=== PATIENT | female | born 1955 | race Caucasian/White ===

== ENCOUNTER 2018-08-25 19:45 | Inpatient (IN) | payer MEDICAID ==
--- NOTE | 2018-08-25 20:13 | ED Physician Chart ---
ED Chief Complaint/HPI - Patient Information Date Seen:: 08/25/18 Time Seen:: 20:11 Chief Complaint:: Abdominal pain History of Present Illness:: 63 yo female with history of DM II, hypertension, liver cirrhosis, ascites, GERD , hepatic encephalopathy, was recently admitted for worsening abdominal distention 2 months ago. At that time, ultrasound-guided paracentesis removed 6 L of yellowish ascites from the RLQ. Recently, pt's abdominal pain and distention gradually became worse. Pt was brought from SNF to ER for further evaluation and management. At ER, pt had constant cough and was somewhat tachypnea. Her O2 sat was 97% on room air. Allergies:: Allergies Allergy/AdvReac Type Severity Reaction Status Date / Time No Known Allergies Allergy Verified 08/25/18 19:56 Vitals:: Vital Signs - 8 hr 08/25/18 19:50 Temp 97.9 F HR 93 RR 20 BP 140/84 O2 Sat % 97 ED Review of Systems - Review of Systems General/Constitutional: No fever Skin: No skin lesions Head: No headache Eyes: No pain ENT: No nasal drainage Neck: No neck pain Cardio Vascular: No chest pain Pulmonary: SOB GI: No nausea, No vomiting, Pain, Other (Abdominal distention ) Musculoskeletal: No bone or joint pain Neurological: Weakness, Confusion ED Past Medical History - Past Medical History Past Medical History: HTN, DM, PUD/GERD, Other (Ascites, history of spontaenous bacterial peritonitis, hepatic encephalopathy) Social History: Non Smoker, No Alcohol, No Drug Use Surgical History: None Family Medical History - Family Member Mother History Unknown: Yes ED Physical Exam - Physical Examination General/Constitutional: Awake Head: Atraumatic Eyes: PERRL Other Eyes comments:: amblyopia left eye Other Skin comments:: Sacral decubitus ulcer stage I ENMT: External ears, nose nl Neck: Nontender Other Respiratory comments:: Labored breathing Cardio Vascular: RRR, No murmur, gallop, rubs, NL S1 S2 Other GI comments:: Markedly distended abdomen Other comments:: Wearing diaper Extremities: Full ROM, No edema Neuro/Psych: Alert/oriented (x self and place, follow command) ED Labs/Radiology/EKG Results - Lab Results Results: Laboratory Last Values PT 10.3 SECONDS (9.5-11.5) 08/25/18 20:20 INR 0.99 (0.5-1.4) 08/25/18 20:20 PTT (Actin FS) 22.8 SECONDS (26.0-38.0) L 08/25/18 20:20 Sodium 133 mEq/L (136-145) L 08/25/18 20:20 Potassium 4.7 mEq/L (3.5-5.1) 08/25/18 20:20 Chloride 101 mEq/L (98-107) 08/25/18 20:20 Carbon Dioxide 23.6 mEq/L (21.0-31.0) 08/25/18 20:20 Anion Gap 13.1 (7.0-16.0) 08/25/18 20:20 BUN 21 mg/dL (7-25) 08/25/18 20:20 Creatinine 1.0 mg/dL (0.6-1.2) 08/25/18 20:20 Est GFR ( Amer) > 60.0 ml/min (>90) 08/25/18 20:20 Est GFR (Non-Af Amer) 59.5 ml/min 08/25/18 20:20 BUN/Creatinine Ratio 21.0 08/25/18 20:20 Glucose 191 mg/dL (70-105) H 08/25/18 20:20 Calcium 9.0 mg/dL (8.6-10.3) 08/25/18 20:20 Total Bilirubin 0.5 mg/dL (0.3-1.0) 08/25/18 20:20 AST 24 U/L (13-39) 08/25/18 20:20 ALT 14 U/L (7-52) 08/25/18 20:20 Alkaline Phosphatase 58 U/L (34-104) 08/25/18 20:20 Ammonia 75 umol/L (16-53) H 08/25/18 20:20 Troponin I 0.01 ng/mL (0.01-0.05) 08/25/18 20:20 B-Natriuretic Peptide 95.6 pg/mL (5.0-100.0) 08/25/18 20:20 Total Protein 7.7 gm/dL (6.0-8.3) 08/25/18 20:20 Albumin 2.7 gm/dL (3.7-5.3) L 08/25/18 20:20 Globulin 5.0 gm/dL 08/25/18 20:20 Albumin/Globulin Ratio 0.5 (1.0-1.8) L 08/25/18 20:20 Amylase 64 U/L (29-103) 08/25/18 20:20 Lipase 27 U/L (11-82) 08/25/18 20:20 Urine Source CATH 08/25/18 20:55 Urine Color YELLOW 08/25/18 20:55 Urine Clarity HAZY (CLEAR) 08/25/18 20:55 Urine pH 5.5 (4.6 - 8.0) 08/25/18 20:55 Ur Specific [place] 1.025 (1.005-1.030) 08/25/18 20:55 Urine Protein TRACE mg/dL (NEGATIVE) 08/25/18 20:55 Urine Glucose (UA) NEGATIVE mg/dL (NEGATIVE) 08/25/18 20:55 Urine Ketones TRACE mg/dL (NEGATIVE) 08/25/18 20:55 Urine Blood MODERATE (NEGATIVE) H 08/25/18 20:55 Urine Nitrate NEGATIVE (NEGATIVE) 08/25/18 20:55 Urine Bilirubin NEGATIVE (NEGATIVE) 08/25/18 20:55 Urine Urobilinogen 1.0 E.U./dL (0.2 - 1.0) 08/25/18 20:55 Ur Leukocyte Esterase NEGATIVE (NEGATIVE) 08/25/18 20:55 Urine RBC 5-10 /hpf (0-5) H 08/25/18 20:55 Urine WBC 2-5 /hpf (0-5) 08/25/18 20:55 Ur Epithelial Cells MODERATE /lpf (FEW) 08/25/18 20:55 Urine Bacteria MANY /hpf (NONE SEEN) H 08/25/18 20:55 - Radiology Results Results: CXR: RLL infiltrate CT abdomen/pelvis without contrast: RLL infiltrate Massive amount of ascitic fluid Anasarca Fecal impaction in rectum No hydronephrosis - EKG Interpretations EKG Time:: 21:43 Rate & Rhythm: SR, 90 bpm [place]: Borderline left axis deviation Comments:: Nonspecific T wave abnormalities ED Assessment - Assessment General Assessment: Abdominal pain Massive ascites Possible spontaneous bacterial peritonitis Liver cirrhosis Hyperammonemia Hepatic encephalopathy Right lower lobe pneumonia Hematuria Hypertension DM II GERD Assessment/Comments:: CBC, CMP, PT/PTT, ammonia, amylase, lipase CXR, EKG CT abdomen/pelvis wo contrast lactulose 30 g po Ceftriaxone IV Azithromycin IV DuoNeb Admit for further management of ascites and to rule out SBP ED Septic Shock - . Is Septic Shock (SBP<90, OR Lactate>4 mmol\L) present?: No - <6hrs of presentation: Vital Signs: Vital Signs - 8 hr 08/25/18 19:50 Temp 97.9 F HR 93 RR 20 BP 140/84 O2 Sat % 97 ED Reassessment (Disposition) - Reassessment Reassessment Condition:: Improved - Patient Disposition Discharge/Transfer:: Acute Care w/in this hosp Admitting Medical Physician:: Jacob Pappas
[2018-08-25 20:40] LABS: INR 0.99 (0.5-1.4); PROTHROMBIN TIME (TEST) 10.3 SECONDS (9.5-11.5)
[2018-08-25 20:43] LABS: ALB/GLOB RATIO 0.5 (1.0-1.8); ALBUMIN 2.7 gm/dL (3.7-5.3); ALKALINE PHOSPHATASE 58 U/L (34-104); AMYLASE SERUM 64 U/L (29-103); ANION GAP 13.1 (7.0-16.0); BILIRUBIN,TOTAL 0.5 mg/dL (0.3-1.0); BUN - UREA NITROGEN 21 mg/dL (7-25); CARBON DIOXIDE 23.6 mEq/L (21.0-31.0); CHLORIDE 101 mEq/L (98-107); GFR AFRICAN-AMERICAN > 60.0 ml/min (>90); GFR NON AFRICAN-AMERICAN 59.5 ml/min; GLUCOSE 191 mg/dL (70-105); LIPASE 27 U/L (11-82); POTASSIUM SERUM 4.7 mEq/L (3.5-5.1); SGOT 24 U/L (13-39); SGPT/ALT 14 U/L (7-52); SODIUM SERUM 133 mEq/L (136-145); TOTAL PROTEIN,SERUM 7.7 gm/dL (6.0-8.3)
[2018-08-25 20:57] LABS: URINE SOURCE CATH
[2018-08-25 21:08] LABS: URINE BILIRUBIN NEGATIVE (NEGATIVE); URINE BLOOD MODERATE (NEGATIVE); URINE GLUCOSE (UA) NEGATIVE (NEGATIVE); URINE KETONE TRACE mg/dL (NEGATIVE); URINE LEUKOCYTE ESTERASE NEGATIVE (NEGATIVE); URINE MICROSCOPIC INDICATED? YES; URINE NITRATE NEGATIVE (NEGATIVE); URINE PH 5.5 (4.6 - 8.0); URINE PROTEIN TRACE mg/dL (NEGATIVE)
[2018-08-25 21:17] LABS: URINE CLARITY HAZY (CLEAR); URINE COLOR YELLOW
[2018-08-25 21:18] LABS: URINE BACTERIA MANY /hpf (NONE SEEN); URINE EPITHELIAL CELLS MODERATE /lpf (FEW)
[2018-08-25] MEDS ORDERED: Lactulose 10 Gm/15 mL 30mL UDC PO STA (21:24)
[2018-08-25] MEDS ORDERED: Lactulose 10 Gm/15 mL 30mL UDC ONE (21:27)
[2018-08-25] MEDS ORDERED: Azithromycin 500 MG in Sodium Chloride 0.9% 250 ML IV ONE (21:45)
[2018-08-25] MEDS ORDERED: cefTRIAXone 1 GM in Sodium Chloride 0.9% 50 ML IV ONE (21:45)
[2018-08-25] MEDS ORDERED: Albuterol/Ipratropium Neb 3 ML AERS HHN ONE ×2 (21:47→21:53)
[2018-08-25 23:09] VITALS: BP 139/80
[2018-08-25 23:27] LABS: HEMATOCRIT 35.7 % (41.0-60); HEMOGLOBIN 11.9 gm/dL (12-16); MEAN CELL VOLUME 93.1 fl (81-100); MEAN CORPUSCULAR HEMOGLOBIN 31.1 pg (27.0-31.0); MEAN CORPUSCULAR HGB CONC 33.4 pg (28.0-36.0); RED BLOOD COUNT 3.84 Mil/cmm (3.80-5.10)
[2018-08-25 23:28] LABS: % EOSINOPHILS 2.6 % (0.0-5.0); % LYMPHOCYTES 15.3 % (20.0-50.0); % NEUTROPHILS 71.1 % (40.0-80.0); MEAN PLATELET VOLUME 7.5 fl; PLATELET COUNT 174 Th/cmm (150-400); RED CELL DISTRIBUTION WIDTH 15.7 % (11.5-20.0)
[2018-08-26 05:46] LABS: ALB/GLOB RATIO 0.6 (1.0-1.8); ALBUMIN 2.4 gm/dL (3.7-5.3); ALKALINE PHOSPHATASE 51 U/L (34-104); ANION GAP 11.1 (7.0-16.0); BILIRUBIN,TOTAL 0.4 mg/dL (0.3-1.0); BUN - UREA NITROGEN 22 mg/dL (7-25); CALCIUM SERUM 8.7 mg/dL (8.6-10.3); CARBON DIOXIDE 23.3 mEq/L (21.0-31.0); CHLORIDE 102 mEq/L (98-107); GFR AFRICAN-AMERICAN > 60.0 ml/min (>90); GFR NON AFRICAN-AMERICAN 59.5 ml/min; GLUCOSE 162 mg/dL (70-105); POTASSIUM SERUM 4.4 mEq/L (3.5-5.1); SGOT 22 U/L (13-39); SGPT/ALT 12 U/L (7-52); SODIUM SERUM 132 mEq/L (136-145); TOTAL PROTEIN,SERUM 6.8 gm/dL (6.0-8.3)
--- NOTE | 2018-08-26 05:54 | History and Physical ---
History of Present Illness - HPI Chief Complaint: abdominal pain HPI: 63 y/o female who presents to [facility] ER with abdominal pain noted at the SNF. Patient has a previous history of SBP, Ascites, Liver Cirrhosis, diabetes mellitus, HTN, GERD, Hepatic Encephalopathy, Pleural Effusion, Lower abd pain, Leg Edema, Patient had initial labwork done in the ER which revealed the following... WBC 5.0 H/H 11.0/35.7 plat 174K Na 133 K 4.7 Bun/Cr 21/1.0 glu 191 AST 24 Alt 14 Alk 58 amylase [address] abd/pelvis RLL Infiltrate Massive amount of Ascites Anasarca Fecal Impaction Patient was subsequently admitted for further evaluation and treatment. Vital Signs: Last Vital Signs Temp 97 F 08/26/18 04:00 Pulse 86 08/26/18 04:00 Resp 18 08/26/18 04:00 BP 127/74 08/26/18 04:00 Pulse Ox 96 08/26/18 04:00 Past Medical History Cardiovascular: Report: HTN Pulmonary: Report: No Pertinent Hx [employer]: Report: Other (hepatic encephalopathy) GI: Report: GERD, Other (ascites, liver cirrhosis, h/o SBP) Psych: Report: No Pertinent Hx Musculoskeletal: Report: No Pertinent Hx Rheumatologic: Report: No pertinent Hx Infectious Disease: Report: No Pertinent Hx Renal/: Report: No Pertinent Hx Endocrine: Report: Diabetes Dermatology: Report: No Pertinent Hx Family Medical History - Family Member Mother History Unknown: Yes Ethnicity: Unknown Living Status: Unknown Hx Family Cancer: (UNKNOWN) Hx Family Coronary Artery Disease: (UNKNOWN) Hx Family Congestive Heart Failure: (UNKNOWN) Hx Family Hypertension: (UNKNOWN) Hx Family Stroke: (UNKNOWN) Hx Family Diabetes: (UNKNOWN) Hx Family Seizures: (UNKNOWN) Hx Family Dementia: (UNKNOWN) Hx Family AIDS: (UNKNOWN) Hx Family COPD: (UNKNOWN) Hx Family Hepatitis: (UNKNOWN) Hx Family Psychiatric Problems: (UNKNOWN) Hx Family Tuberculosis: (UNKNWON) Social History Smoke: No Alcohol: None Drugs: None Lives: Shelter - Medications Home Medications: Home Medication Medication Instructions Recorded Type Acetaminophen [Tylenol] 650 mg PO Q6HR PRN 06/28/18 History Amino Acids/Protein Hydrolys 30 ml PO BID 06/28/18 History [Pro-Stat Sugar Free Liquid] Bisacodyl [Dulcolax 10 Mg Supp] 10 mg RC DAILY PRN 06/28/18 History Carvedilol [Coreg] 3.125 mg PO BID 06/28/18 History Docusate Sodium [Colace] 100 mg PO DAILY 06/28/18 History Famotidine [Pepcid] 20 mg PO BID 06/28/18 History Fleet Enema 135 ml RC DAILY PRN 06/28/18 History GLUCAGON HCl [Glucagen] 1 mg IJ PRN PRN 06/28/18 History Glipizide [Glucotrol] 2.5 mg PO QDAC 06/28/18 History Lactulose 30 ml PO BID 06/28/18 History Magnesium Hydroxide [Milk of 30 ml PO HS PRN 06/28/18 History Magnesia] Multivitamin [Multivitamins] 1 cap PO DAILY 06/28/18 History Potassium Chloride ER [Klor-Con] 20 meq PO DAILY 06/28/18 History Insulin Lispro Sliding Scale See Protocol SUBQ ACHS unit 07/02/18 Rx [humaLOG INSULIN SLIDING SCALE] Sitagliptin [Januvia] 50 mg PO DAILY 08/25/18 History - Allergies Allergies/Adverse Reactions: Allergies Allergy/AdvReac Type Severity Reaction Status Date / Time No Known Allergies Allergy Verified 08/25/18 19:56 Review of Systems - Review of Systems Constitutional: Report: No Significant Eyes: Report: No Significant ENT: Report: No Significant Respiratory: Report: No Significant Cardiovascular: Report: No Significant Gastrointestinal: Report: Abdominal Pain Genitourinary: Report: No Significant Musculoskeletal: Report: No Significant Skin: Report: No Significant Neurological: Report: No Significant Physical Exam - Physical Exam HEENT: Report: Ears Nose Throat within normal limits, Pharnyx within normal limits Neck: Report: Within normal limits Cardiovascular Systems: Report: +s1/s2 noted, Regular, Rate and Rhythm Respiratory: Report: Breath Sounds are within normal limits Abdomen: Report: Non-tender to palpation Back: Report: Inspection of back is within normal limits. Extremities: Report: Non-tender to palpation. Skin: Report: Color of skin is within normal limits Neuro/Psych: Report: Mood affect is within normal limits - Lab Results All Lab Results last 24 hours: Laboratory Results - last 24 hr 08/25/18 08/25/18 08/25/18 20:20 20:20 20:20 WBC 5.0 RBC 3.84 Hgb 11.9 L Hct 35.7 L MCV 93.1 MCH 31.1 H MCHC Differential 33.4 RDW 15.7 Plt Count 174 MPV 7.5 Neutrophils % 71.1 Lymphocytes % 15.3 L Monocytes % 10.0 Eosinophils % 2.6 Basophils % 1.0 PT 10.3 INR 0.99 PTT (Actin FS) 22.8 L Sodium 133 L Potassium 4.7 Chloride 101 Carbon Dioxide 23.6 Anion Gap 13.1 BUN 21 Creatinine 1.0 Est GFR ( Amer) > 60.0 Est GFR (Non-Af Amer) 59.5 BUN/Creatinine Ratio 21.0 Glucose 191 H POC Glucose Calcium 9.0 Total Bilirubin 0.5 AST 24 ALT 14 Alkaline Phosphatase 58 Ammonia Troponin I B-Natriuretic Peptide Total Protein 7.7 Albumin 2.7 L Globulin 5.0 Albumin/Globulin Ratio 0.5 L Amylase 64 Lipase 27 Urine Source Urine Color Urine Clarity Urine pH Ur Specific [place] Urine Protein Urine Glucose (UA) Urine Ketones Urine Blood Urine Nitrate Urine Bilirubin Urine Urobilinogen Ur Leukocyte Esterase Urine RBC Urine WBC Ur Epithelial Cells Urine Bacteria 08/25/18 08/25/18 08/25/18 20:20 20:20 20:20 WBC RBC Hgb Hct MCV MCH MCHC Differential RDW Plt Count MPV Neutrophils % Lymphocytes % Monocytes % Eosinophils % Basophils % PT INR PTT (Actin FS) Sodium Potassium Chloride Carbon Dioxide Anion Gap BUN Creatinine Est GFR ( Amer) Est GFR (Non-Af Amer) BUN/Creatinine Ratio Glucose POC Glucose Calcium Total Bilirubin AST ALT Alkaline Phosphatase Ammonia 75 H Troponin I 0.01 B-Natriuretic Peptide 95.6 Total Protein Albumin Globulin Albumin/Globulin Ratio Amylase Lipase Urine Source Urine Color Urine Clarity Urine pH Ur Specific [place] Urine Protein Urine Glucose (UA) Urine Ketones Urine Blood Urine Nitrate Urine Bilirubin Urine Urobilinogen Ur Leukocyte Esterase Urine RBC Urine WBC Ur Epithelial Cells Urine Bacteria 08/25/18 08/26/18 20:55 00:01 WBC RBC Hgb Hct MCV MCH MCHC Differential RDW Plt Count MPV Neutrophils % Lymphocytes % Monocytes % Eosinophils % Basophils % PT INR PTT (Actin FS) Sodium Potassium Chloride Carbon Dioxide Anion Gap BUN Creatinine Est GFR ( Amer) Est GFR (Non-Af Amer) BUN/Creatinine Ratio Glucose POC Glucose 166 H Calcium Total Bilirubin AST ALT Alkaline Phosphatase Ammonia Troponin I B-Natriuretic Peptide Total Protein Albumin Globulin Albumin/Globulin Ratio Amylase Lipase Urine Source CATH Urine Color YELLOW Urine Clarity HAZY Urine pH 5.5 Ur Specific [place] 1.025 Urine Protein TRACE Urine Glucose (UA) NEGATIVE Urine Ketones TRACE Urine Blood MODERATE H Urine Nitrate NEGATIVE Urine Bilirubin NEGATIVE Urine Urobilinogen 1.0 Ur Leukocyte Esterase NEGATIVE Urine RBC 5-10 H Urine WBC 2-5 Ur Epithelial Cells MODERATE Urine Bacteria MANY H - Assessment Assessment: Abdominal Pain RLL infiltrate Ascites Fecal Impaction Anasarca h/o SBP Liver Cirrhosis DM HTN GERD Hepatic Encephalopathy Pleural Effusion Lower abd Pain Leg Edema - Plan Plan: GI consult ... repeat CBC, CMP, ammonia level u/s guided paracentesis
[2018-08-26] MEDS ORDERED: GLUCAGON HCl 1 MG KIT IM PRN (06:04)
[2018-08-26] MEDS ORDERED: Magnesium Hydroxide (MOM) 30 mL UDC PO PRN (06:04)
[2018-08-26] MEDS ORDERED: Fleet Enema 135 mL RC PRN (06:04)
[2018-08-26] MEDS ORDERED: D5-0.45NS 1,000 ML IV SCH (08:07)
[2018-08-26] MEDS: Potassium Chloride 20 mEq ER Tab PO SCH (08:48)
[2018-08-26] MEDS: Lactulose 10 Gm/15 mL 30mL UDC PO SCH ×2 (08:49→16:12)
[2018-08-26] MEDS: Multivitamin Tab PO SCH (08:49)
[2018-08-26] MEDS ORDERED: Non-Formulary Item 1 EA (Amino Acids/Protein Hydrolys [Pro-Stat Sugar Free Liquid] 30 ML) PO SCH (09:00)
[2018-08-26] MEDS ORDERED: Non-Formulary Item 1 EA (Multivitamin [Multivitamins] 1 CAP) PO SCH (09:00)
[2018-08-26] MEDS: INSULIN LISPRO SLIDING SCALE 100 UNITS/ML UNIT SUBQ SCH ×4 (09:02→20:25)
--- NOTE | 2018-08-26 09:41 | Diagnostic Imaging Report ---
Exam: Portable summation of chest. HISTORY: Congestion Prior exam: 08/25/2018 Findings: Portable examination of chest at 0849 hours reviewed and compared to the prior study the earlier demonstrates increase in the right lower lobe infiltrate and superimposed effusion. Right hemidiaphragm is elevated. The left lung parenchyma is well aerated. Bony thorax is intact IMPRESSION: Increased right lobe pneumonia and effusion. Elevation right hemidiaphragm. Clinical correlation recommended.
--- NOTE | 2018-08-26 09:41 | Diagnostic Imaging Report ---
Exam: KUB of the abdomen HISTORY: Abdominal pain Findings: Portable supine examination the abdomen reviewed. The study demonstrates evidence of previous cholecystectomy. The bowel gas to be nonspecific. Bony structures are intact. IMPRESSION: Nonspecific bowel gas pattern.
--- NOTE | 2018-08-26 09:43 | Diagnostic Imaging Report ---
Exam: CT examination abdomen pelvis HISTORY: Abdominal pain ascites Total DLP equals 986 CTDI equals 18.5 Findings: Multiple contiguous thin section of the abdomen pelvis obtained from lower thorax to pubic symphysis without the administration of intravenous or oral contrast material, the study correlated with the prior exam of 06/28/2018. Bilateral mild interstitial infiltrates and pleural thickening appreciated left pleural effusion. The study again demonstrates significant degree of ascitic fluid throughout the abdomen. The visualized liver and spleen intact. There is evidence of previous cholecystectomy. Large amount of fecal content is noted. There is no evidence of obstructive uropathy or nephrolithiasis. Atherosclerotic calcification of abdominal aorta. The urinary bladder is contracted. There are evidence for anasarca. IMPRESSION : massive amount of ascitic fluid throughout the abdomen unchanged compared to prior examination of 06/28/2018.
--- NOTE | 2018-08-26 09:45 | Diagnostic Imaging Report ---
Exam: Portable chest x-ray HISTORY: Shortness of breath COMPARISON: 06/28/2018 Findings: Portable summation of chest at 2101 reviewed. The study demonstrates a elevation right hemidiaphragm with a right base infiltrate and effusion. The findings essentially unchanged compared to prior examination of 06/28/2018. The left lung parenchyma is well aerated. Bony thorax intact. IMPRESSION: elevation right hemidiaphragm, right lower lobe infiltrate and effusion. Follow-up exam is recommended.
[2018-08-26 11:13] LABS: HEMATOCRIT 32.5 % (41.0-60); HEMOGLOBIN 10.5 gm/dL (12-16); MEAN CELL VOLUME 96.2 fl (81-100); MEAN CORPUSCULAR HGB CONC 32.2 pg (28.0-36.0); RED BLOOD COUNT 3.38 Mil/cmm (3.80-5.10); WHITE BLOOD COUNT 4.9 Th/cmm (4.8-10.8)
[2018-08-26 11:14] LABS: % EOSINOPHILS 1.6 % (0.0-5.0); % LYMPHOCYTES 16.9 % (20.0-50.0); % MONOCYTES 12.5 % (2.0-10.0); EOSINOPHILE ABSOLUTE 0.1 Th/cmm (0.1-0.4); LYMPHOCYTE ABSOLUTE 0.8 Th/cmm (1.5-3.0); MEAN PLATELET VOLUME 7.4 fl; MONOCYTE ABSOLUTE 0.6 Th/cmm (0.3-1.0); NEUTROPHILE ABSOLUTE 3.3 Th/cmm (1.8-8.0); PLATELET COUNT 145 Th/cmm (150-400); RED CELL DISTRIBUTION WIDTH 16.2 % (11.5-20.0)
[2018-08-26] MEDS: cefTRIAXone 1 GM in Sodium Chloride 0.9% 50 ML IV SCH (20:17)
[2018-08-26] MEDS: Azithromycin 500 MG in Sodium Chloride 0.9% 250 ML IV SCH (20:17)
--- NOTE | 2018-08-26 20:58 | Consultation ---
DATE OF CONSULTATION: 08/26/2018 GASTROENTEROLOGY CONSULTATION REQUESTING PHYSICIAN: Jacob Pappas M.D. REASON FOR CONSULTATION: Cirrhosis and distention. HISTORY OF PRESENT ILLNESS: A 63-year-old female with history of known cirrhosis ascites/SBP, hepatic encephalopathy, and peripheral edema. She has underlying diabetes mellitus, hypertension, and GERD. She was admitted from skilled nursing for worsening abdominal distention and pain. She was also diagnosed with possible pneumonia. She on imaging was noted to have large ascites. Ultrasound-guided paracentesis is pending. We were asked to see her for her chronic liver disease. PAST MEDICAL HISTORY: As above. PAST SURGICAL HISTORY: Unknown. MEDICATIONS: Here are azithromycin, Dulcolax suppository p.r.n., carvedilol, Rocephin, IV fluids with D5 half NS, Colace daily, Pepcid, Glucotrol, insulin sliding scale, lactulose 20 grams b.i.d., milk of magnesia p.r.n., multivitamin, Klor-Con, Januvia, and Fleet enema p.r.n. ALLERGIES: No known drug allergies. SOCIAL HISTORY: No recent tobacco, alcohol, or drugs. FAMILY HISTORY: Noncontributory. REVIEW OF SYSTEMS: Negative. PHYSICAL EXAMINATION: VITAL SIGNS: Temperature of 97.0, blood pressure 110/70, pulse of 80, respirations 19, and O2 sats 97% on room air. GENERAL: The patient is well-developed, chronically ill-appearing female in no acute distress, somewhat confused. HEENT: Sclerae nonicteric. Oropharynx is clear. CARDIOVASCULAR: Regular rate and rhythm. LUNGS: Clear to auscultation bilaterally. ABDOMEN: Soft. Moderate to large ascites with positive fluid wave. No tenderness to palpation. EXTREMITIES: No clubbing, cyanosis, or edema. RECTAL: Deferred. LABORATORY DATA AND IMAGING: WBC 4.9, hemoglobin 10.5, and platelet count is 145. INR 0.99. Sodium 132, creatinine 1.0, BUN 22, bilirubin 0.4, AST 22, ALT 12, and alkaline phosphatase 51. Albumin is 2.4, ammonia level mildly elevated at 57 today, yesterday was 75. Amylase and lipase normal. Urinalysis shows moderate blood, 5-10 RBCs, trace protein. CT of the abdomen and pelvis done on admission without contrast showed massive ascites, unchanged from prior examination on 06/28/2018, previous cholecystectomy, large amount of fecal content noted. KUB showed nonspecific bowel gas pattern and chest x-ray showed increased right lower lobe pneumonia and effusion, elevation of right hemidiaphragm. IMPRESSION: 1. Cirrhosis, probable nonalcoholic steatohepatitis, but rule out other causes of chronic liver disease such as hepatitis B or C or alcoholism, etc. 3. Probable hepatic encephalopathy with elevated ammonia level. 4. Ascites, recurrent. 5. Possible right-sided pleural effusion and hydrothorax. RECOMMENDATIONS: 1. Agree with ultrasound-guided paracentesis tomorrow. 2. Diuretics with Lasix and Aldactone in the meantime and watch sodium and creatinine. 3. A 2 g sodium diet. 4. Continue lactulose and add rifaximin. 5. Monitor hemoglobin and consider endoscopic workup with endoscopy and/or colonoscopy if not done previously. Endoscopic workup can also be done as an outpatient once ascites is better controlled. 6. Outpatient hepatology follow up with consideration for liver transplantation evaluation if not done previously. Thank you, Dr. Jacob Pappas for involving us in the care of your patient. If you have any further questions, please call us. JOB# [id number]
[2018-08-27 05:12] LABS: ALB/GLOB RATIO 0.5 (1.0-1.8); ALBUMIN 2.4 gm/dL (3.7-5.3); ALKALINE PHOSPHATASE 49 U/L (34-104); ANION GAP 10.7 (7.0-16.0); BILIRUBIN,TOTAL 0.5 mg/dL (0.3-1.0); BUN - UREA NITROGEN 21 mg/dL (7-25); CALCIUM SERUM 8.7 mg/dL (8.6-10.3); CARBON DIOXIDE 25.4 mEq/L (21.0-31.0); CHLORIDE 105 mEq/L (98-107); CREATININE - SERUM 1.1 mg/dL (0.6-1.2); GFR AFRICAN-AMERICAN > 60.0 ml/min (>90); GFR NON AFRICAN-AMERICAN 53.3 ml/min; GLUCOSE 121 mg/dL (70-105); POTASSIUM SERUM 4.1 mEq/L (3.5-5.1); SGOT 18 U/L (13-39); SGPT/ALT 12 U/L (7-52); SODIUM SERUM 137 mEq/L (136-145); TOTAL PROTEIN,SERUM 6.9 gm/dL (6.0-8.3)
[2018-08-27] MEDS: INSULIN LISPRO SLIDING SCALE 100 UNITS/ML UNIT SUBQ SCH ×4 (06:58→20:21)
--- NOTE | 2018-08-27 08:18 | GI Progress Note ---
Subjective - Review of Systems Service Date: 08/27/18 Subjective: A/Ox2, no overnight events GI OBJECTIVE - Results Result Diagrams: 08/26/18 05:00 08/27/18 04:15 Recent Labs: Laboratory Last Values WBC 4.9 Th/cmm (4.8-10.8) 08/26/18 05:00 RBC 3.38 Mil/cmm (3.80-5.10) L 08/26/18 05:00 Hgb 10.5 gm/dL (12-16) L 08/26/18 05:00 Hct 32.5 % (41.0-60) L 08/26/18 05:00 MCV 96.2 fl (81-100) 08/26/18 05:00 MCH 31.0 pg (27.0-31.0) 08/26/18 05:00 MCHC Differential 32.2 pg (28.0-36.0) 08/26/18 05:00 RDW 16.2 % (11.5-20.0) 08/26/18 05:00 Plt Count 145 Th/cmm (150-400) L 08/26/18 05:00 MPV 7.4 fl 08/26/18 05:00 Neutrophils % 68.0 % (40.0-80.0) 08/26/18 05:00 Lymphocytes % 16.9 % (20.0-50.0) L 08/26/18 05:00 Monocytes % 12.5 % (2.0-10.0) H 08/26/18 05:00 Eosinophils % 1.6 % (0.0-5.0) 08/26/18 05:00 Basophils % 1.0 % (0.0-2.0) 08/26/18 05:00 PT 10.3 SECONDS (9.5-11.5) 08/25/18 20:20 INR 0.99 (0.5-1.4) 08/25/18 20:20 PTT (Actin FS) 22.8 SECONDS (26.0-38.0) L 08/25/18 20:20 Sodium 137 mEq/L (136-145) 08/27/18 04:15 Potassium 4.1 mEq/L (3.5-5.1) 08/27/18 04:15 Chloride 105 mEq/L (98-107) 08/27/18 04:15 Carbon Dioxide 25.4 mEq/L (21.0-31.0) 08/27/18 04:15 Anion Gap 10.7 (7.0-16.0) 08/27/18 04:15 BUN 21 mg/dL (7-25) 08/27/18 04:15 Creatinine 1.1 mg/dL (0.6-1.2) 08/27/18 04:15 Est GFR ( Amer) > 60.0 ml/min (>90) 08/27/18 04:15 Est GFR (Non-Af Amer) 53.3 ml/min 08/27/18 04:15 BUN/Creatinine Ratio 19.1 08/27/18 04:15 Glucose 121 mg/dL (70-105) H 08/27/18 04:15 POC Glucose 120 MG/DL (70 - 105) H 08/27/18 06:21 Calcium 8.7 mg/dL (8.6-10.3) 08/27/18 04:15 Total Bilirubin 0.5 mg/dL (0.3-1.0) 08/27/18 04:15 AST 18 U/L (13-39) 08/27/18 04:15 ALT 12 U/L (7-52) 08/27/18 04:15 Alkaline Phosphatase 49 U/L (34-104) 08/27/18 04:15 Ammonia 53 umol/L (16-53) 08/27/18 04:15 Troponin I 0.01 ng/mL (0.01-0.05) 08/25/18 20:20 B-Natriuretic Peptide 95.6 pg/mL (5.0-100.0) 08/25/18 20:20 Total Protein 6.9 gm/dL (6.0-8.3) 08/27/18 04:15 Albumin 2.4 gm/dL (3.7-5.3) L 08/27/18 04:15 Globulin 4.5 gm/dL 08/27/18 04:15 Albumin/Globulin Ratio 0.5 (1.0-1.8) L 08/27/18 04:15 Amylase 64 U/L (29-103) 08/25/18 20:20 Lipase 27 U/L (11-82) 08/25/18 20:20 Urine Source CATH 08/25/18 20:55 Urine Color YELLOW 08/25/18 20:55 Urine Clarity HAZY (CLEAR) 08/25/18 20:55 Urine pH 5.5 (4.6 - 8.0) 08/25/18 20:55 Ur Specific [place] 1.025 (1.005-1.030) 08/25/18 20:55 Urine Protein TRACE mg/dL (NEGATIVE) 08/25/18 20:55 Urine Glucose (UA) NEGATIVE mg/dL (NEGATIVE) 08/25/18 20:55 Urine Ketones TRACE mg/dL (NEGATIVE) 08/25/18 20:55 Urine Blood MODERATE (NEGATIVE) H 08/25/18 20:55 Urine Nitrate NEGATIVE (NEGATIVE) 08/25/18 20:55 Urine Bilirubin NEGATIVE (NEGATIVE) 08/25/18 20:55 Urine Urobilinogen 1.0 E.U./dL (0.2 - 1.0) 08/25/18 20:55 Ur Leukocyte Esterase NEGATIVE (NEGATIVE) 08/25/18 20:55 Urine RBC 5-10 /hpf (0-5) H 08/25/18 20:55 Urine WBC 2-5 /hpf (0-5) 08/25/18 20:55 Ur Epithelial Cells MODERATE /lpf (FEW) 08/25/18 20:55 Urine Bacteria MANY /hpf (NONE SEEN) H 08/25/18 20:55 - Physical Exam Vitals and I&O: Vital Signs Temp 98.4 F 08/27/18 04:00 Pulse 84 08/27/18 04:00 Resp 18 08/27/18 04:00 BP 116/60 08/27/18 04:00 Pulse Ox 98 08/27/18 04:00 Intake & Output 08/26/18 08/27/18 08/27/18 18:59 06:59 18:59 Weight (lbs) 84.822 kg Other: # Voids 3 Stool Characteristics Formed Liquid Brown Weight Source Bedscale Active Medications: Current Medications Acetaminophen (Tylenol) 650 mg PO Q6HR PRN PRN Reason: Pain or Fever >101 Stop: 10/25/18 06:03 Bisacodyl (Dulcolax 10 Mg Supp) 10 mg RC DAILY PRN PRN Reason: Constipation Stop: 10/25/18 06:03 Last Admin: 08/26/18 08:49 Dose: 10 mg Carvedilol (Coreg) 3.125 mg PO BID [facility] Stop: 10/25/18 08:59 Last Admin: 08/26/18 16:13 Dose: Not Given Docusate Sodium (Colace) 100 mg PO DAILY [facility] Stop: 10/25/18 08:59 Last Admin: 08/26/18 08:49 Dose: 100 mg Famotidine (Pepcid) 20 mg PO BID [facility] Stop: 10/25/18 08:59 Last Admin: 08/26/18 16:13 Dose: 20 mg Furosemide (Lasix) 40 mg PO DAILY [facility] Stop: 10/25/18 12:44 Last Admin: 08/26/18 12:56 Dose: 40 mg Glipizide (Glucotrol) 2.5 mg PO QDAC [facility] Stop: 10/25/18 07:29 Last Admin: 08/26/18 08:38 Dose: Not Given Glucagon (Glucagen) 1 mg IM PRN PRN PRN Reason: BLOOD SUGAR < 70 Stop: 10/25/18 06:03 Ceftriaxone Sodium 1 gm/ (Sodium Chloride) 50 mls @ 100 mls/hr IV DAILY@2100 [facility] Stop: 10/25/18 20:59 Last Admin: 08/26/18 20:17 Dose: 100 mls/hr Azithromycin 500 mg/ Sodium (Chloride) 250 mls @ 250 mls/hr IV DAILY@2100 [facility] Stop: 10/25/18 20:59 Last Admin: 08/26/18 20:17 Dose: 250 mls/hr Insulin Human Lispro (Humalog Insulin Sliding Scale) 0 units SUBQ ACHS [facility]; Protocol Stop: 10/25/18 07:29 Last Admin: 08/27/18 06:58 Dose: Not Given Lactulose (Cephulac) 20 gm PO BID [facility] Stop: 10/25/18 08:59 Last Admin: 08/26/18 16:12 Dose: 20 gm Magnesium Hydroxide (Milk Of Magnesia) 30 ml PO HS PRN PRN Reason: Constipation Stop: 10/25/18 06:03 Multivitamins/Vitamin C (Theragran) 1 tab PO DAILY [facility] Stop: 10/25/18 08:59 Last Admin: 08/26/18 08:49 Dose: 1 tab Potassium Chloride (Klor-Con) 20 meq PO DAILY [facility] Stop: 10/25/18 08:59 Last Admin: 08/26/18 08:48 Dose: 20 meq Rifaximin (Xifaxan) 600 mg PO BID [facility] Stop: 10/25/18 16:59 Last Admin: 08/26/18 16:12 Dose: 600 mg Sitagliptin Phosphate (Januvia) 50 mg PO DAILY [facility] Stop: 10/25/18 08:59 Last Admin: 08/26/18 08:48 Dose: 50 mg Sodium Phosphate (Fleet Enema) 135 ml RC DAILY PRN PRN Reason: Constipation Stop: 10/25/18 06:03 Spironolactone (Aldactone) 100 mg PO DAILY [facility] Stop: 10/25/18 12:44 Last Admin: 08/26/18 12:56 Dose: 100 mg General: Alert HEENT: Atraumatic Neck: Supple Cardiovascular: Regular rate Abdomen: Bowel sounds, Soft, Hepatomegaly, Distended, no Tender, no Splenomegaly , no Rebound, no Mass, no Guarding - Procedures Procedures: Procedures Procedure Code Date DRAINAGE OF PERITONEAL CAVITY, PERCUTANEOUS APPROACH [id number] 06/29/18 Assessment/Plan - Assessment Assessment: # Cirrhosis, 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 Monitor Cr and electrolytes - lactulose and rifaximin for HE, much improved - diet as tolerated, low sodium - hepatology follow up - HCC screening up to date - avoid EtOH
--- NOTE | 2018-08-27 08:25 | General Progress Note ---
Subjective - Review of Systems Service Date: 08/27/18 Subjective: Patient is awake, alert, no acute distress. Patient for therapeutic paracentesis this AM. Objective - Results Result Diagrams: 08/26/18 05:00 08/27/18 04:15 Recent Labs: Laboratory Last Values WBC 4.9 Th/cmm (4.8-10.8) 08/26/18 05:00 RBC 3.38 Mil/cmm (3.80-5.10) L 08/26/18 05:00 Hgb 10.5 gm/dL (12-16) L 08/26/18 05:00 Hct 32.5 % (41.0-60) L 08/26/18 05:00 MCV 96.2 fl (81-100) 08/26/18 05:00 MCH 31.0 pg (27.0-31.0) 08/26/18 05:00 MCHC Differential 32.2 pg (28.0-36.0) 08/26/18 05:00 RDW 16.2 % (11.5-20.0) 08/26/18 05:00 Plt Count 145 Th/cmm (150-400) L 08/26/18 05:00 MPV 7.4 fl 08/26/18 05:00 Neutrophils % 68.0 % (40.0-80.0) 08/26/18 05:00 Lymphocytes % 16.9 % (20.0-50.0) L 08/26/18 05:00 Monocytes % 12.5 % (2.0-10.0) H 08/26/18 05:00 Eosinophils % 1.6 % (0.0-5.0) 08/26/18 05:00 Basophils % 1.0 % (0.0-2.0) 08/26/18 05:00 PT 10.3 SECONDS (9.5-11.5) 08/25/18 20:20 INR 0.99 (0.5-1.4) 08/25/18 20:20 PTT (Actin FS) 22.8 SECONDS (26.0-38.0) L 08/25/18 20:20 Sodium 137 mEq/L (136-145) 08/27/18 04:15 Potassium 4.1 mEq/L (3.5-5.1) 08/27/18 04:15 Chloride 105 mEq/L (98-107) 08/27/18 04:15 Carbon Dioxide 25.4 mEq/L (21.0-31.0) 08/27/18 04:15 Anion Gap 10.7 (7.0-16.0) 08/27/18 04:15 BUN 21 mg/dL (7-25) 08/27/18 04:15 Creatinine 1.1 mg/dL (0.6-1.2) 08/27/18 04:15 Est GFR ( Amer) > 60.0 ml/min (>90) 08/27/18 04:15 Est GFR (Non-Af Amer) 53.3 ml/min 08/27/18 04:15 BUN/Creatinine Ratio 19.1 08/27/18 04:15 Glucose 121 mg/dL (70-105) H 08/27/18 04:15 POC Glucose 120 MG/DL (70 - 105) H 08/27/18 06:21 Calcium 8.7 mg/dL (8.6-10.3) 08/27/18 04:15 Total Bilirubin 0.5 mg/dL (0.3-1.0) 08/27/18 04:15 AST 18 U/L (13-39) 08/27/18 04:15 ALT 12 U/L (7-52) 08/27/18 04:15 Alkaline Phosphatase 49 U/L (34-104) 08/27/18 04:15 Ammonia 53 umol/L (16-53) 08/27/18 04:15 Troponin I 0.01 ng/mL (0.01-0.05) 08/25/18 20:20 B-Natriuretic Peptide 95.6 pg/mL (5.0-100.0) 08/25/18 20:20 Total Protein 6.9 gm/dL (6.0-8.3) 08/27/18 04:15 Albumin 2.4 gm/dL (3.7-5.3) L 08/27/18 04:15 Globulin 4.5 gm/dL 08/27/18 04:15 Albumin/Globulin Ratio 0.5 (1.0-1.8) L 08/27/18 04:15 Amylase 64 U/L (29-103) 08/25/18 20:20 Lipase 27 U/L (11-82) 08/25/18 20:20 Urine Source CATH 08/25/18 20:55 Urine Color YELLOW 08/25/18 20:55 Urine Clarity HAZY (CLEAR) 08/25/18 20:55 Urine pH 5.5 (4.6 - 8.0) 08/25/18 20:55 Ur Specific [place] 1.025 (1.005-1.030) 08/25/18 20:55 Urine Protein TRACE mg/dL (NEGATIVE) 08/25/18 20:55 Urine Glucose (UA) NEGATIVE mg/dL (NEGATIVE) 08/25/18 20:55 Urine Ketones TRACE mg/dL (NEGATIVE) 08/25/18 20:55 Urine Blood MODERATE (NEGATIVE) H 08/25/18 20:55 Urine Nitrate NEGATIVE (NEGATIVE) 08/25/18 20:55 Urine Bilirubin NEGATIVE (NEGATIVE) 08/25/18 20:55 Urine Urobilinogen 1.0 E.U./dL (0.2 - 1.0) 08/25/18 20:55 Ur Leukocyte Esterase NEGATIVE (NEGATIVE) 08/25/18 20:55 Urine RBC 5-10 /hpf (0-5) H 08/25/18 20:55 Urine WBC 2-5 /hpf (0-5) 08/25/18 20:55 Ur Epithelial Cells MODERATE /lpf (FEW) 08/25/18 20:55 Urine Bacteria MANY /hpf (NONE SEEN) H 08/25/18 20:55 - Physical Exam Vitals and I&O: Vital Signs Temp 98.4 F 08/27/18 04:00 Pulse 84 08/27/18 04:00 Resp 18 08/27/18 04:00 BP 116/60 08/27/18 04:00 Pulse Ox 98 08/27/18 04:00 Intake & Output 08/26/18 08/27/18 08/27/18 18:59 06:59 18:59 Weight (lbs) 84.822 kg Other: # Voids 3 Stool Characteristics Formed Liquid Brown Weight Source Bedscale Active Medications: Current Medications Acetaminophen (Tylenol) 650 mg PO Q6HR PRN PRN Reason: Pain or Fever >101 Stop: 10/25/18 06:03 Bisacodyl (Dulcolax 10 Mg Supp) 10 mg RC DAILY PRN PRN Reason: Constipation Stop: 10/25/18 06:03 Last Admin: 08/26/18 08:49 Dose: 10 mg Carvedilol (Coreg) 3.125 mg PO BID [facility] Stop: 10/25/18 08:59 Last Admin: 08/26/18 16:13 Dose: Not Given Docusate Sodium (Colace) 100 mg PO DAILY [facility] Stop: 10/25/18 08:59 Last Admin: 08/26/18 08:49 Dose: 100 mg Famotidine (Pepcid) 20 mg PO BID [facility] Stop: 10/25/18 08:59 Last Admin: 08/26/18 16:13 Dose: 20 mg Furosemide (Lasix) 40 mg PO DAILY [facility] Stop: 10/25/18 12:44 Last Admin: 08/26/18 12:56 Dose: 40 mg Glipizide (Glucotrol) 2.5 mg PO QDAC [facility] Stop: 10/25/18 07:29 Last Admin: 08/26/18 08:38 Dose: Not Given Glucagon (Glucagen) 1 mg IM PRN PRN PRN Reason: BLOOD SUGAR < 70 Stop: 10/25/18 06:03 Ceftriaxone Sodium 1 gm/ (Sodium Chloride) 50 mls @ 100 mls/hr IV DAILY@2100 [facility] Stop: 10/25/18 20:59 Last Admin: 08/26/18 20:17 Dose: 100 mls/hr Azithromycin 500 mg/ Sodium (Chloride) 250 mls @ 250 mls/hr IV DAILY@2100 [facility] Stop: 10/25/18 20:59 Last Admin: 08/26/18 20:17 Dose: 250 mls/hr Insulin Human Lispro (Humalog Insulin Sliding Scale) 0 units SUBQ ACHS [facility]; Protocol Stop: 10/25/18 07:29 Last Admin: 08/27/18 06:58 Dose: Not Given Lactulose (Cephulac) 20 gm PO BID [facility] Stop: 10/25/18 08:59 Last Admin: 08/26/18 16:12 Dose: 20 gm Magnesium Hydroxide (Milk Of Magnesia) 30 ml PO HS PRN PRN Reason: Constipation Stop: 10/25/18 06:03 Multivitamins/Vitamin C (Theragran) 1 tab PO DAILY [facility] Stop: 10/25/18 08:59 Last Admin: 08/26/18 08:49 Dose: 1 tab Potassium Chloride (Klor-Con) 20 meq PO DAILY [facility] Stop: 10/25/18 08:59 Last Admin: 08/26/18 08:48 Dose: 20 meq Rifaximin (Xifaxan) 600 mg PO BID [facility] Stop: 10/25/18 16:59 Last Admin: 08/26/18 16:12 Dose: 600 mg Sitagliptin Phosphate (Januvia) 50 mg PO DAILY [facility] Stop: 10/25/18 08:59 Last Admin: 08/26/18 08:48 Dose: 50 mg Sodium Phosphate (Fleet Enema) 135 ml RC DAILY PRN PRN Reason: Constipation Stop: 10/25/18 06:03 Spironolactone (Aldactone) 100 mg PO DAILY [facility] Stop: 10/25/18 12:44 Last Admin: 08/26/18 12:56 Dose: 100 mg General: Alert HEENT: Atraumatic Neck: Supple Cardiovascular: Regular rate Abdomen: Bowel sounds, Soft, Hepatomegaly, Distended, no Tender, no Splenomegaly , no Rebound, no Mass, no Guarding - Procedures Procedures: Procedures Procedure Code Date DRAINAGE OF PERITONEAL CAVITY, PERCUTANEOUS APPROACH [id number] 06/29/18 Assessment/Plan - Assessment Assessment: Abdominal Pain RLL infiltrate Ascites Fecal Impaction Anasarca h/o SBP Liver Cirrhosis DM HTN GERD Hepatic Encephalopathy Pleural Effusion Lower abd Pain Leg Edema - Plan Plan: GI consult ... repeat CBC, CMP, ammonia level for u/s guided paracentesis today
[2018-08-27] MEDS: Potassium Chloride 20 mEq ER Tab PO SCH (08:30)
[2018-08-27] MEDS: Lactulose 10 Gm/15 mL 30mL UDC PO SCH ×2 (08:31→16:10)
[2018-08-27] MEDS: Multivitamin Tab PO SCH (08:31)
[2018-08-27] MEDS ORDERED: Probiotic Screen MC PRN (09:15)
[2018-08-27 09:16] LABS: WHITE BLOOD COUNT 3.9 Th/cmm (4.8-10.8)
[2018-08-27 09:22] LABS: % NEUTROPHILS 57.2 % (40.0-80.0); HEMATOCRIT 32.4 % (41.0-60); HEMOGLOBIN 10.6 gm/dL (12-16); MEAN CELL VOLUME 95.1 fl (81-100); MEAN CORPUSCULAR HEMOGLOBIN 31.1 pg (27.0-31.0); MEAN CORPUSCULAR HGB CONC 32.7 pg (28.0-36.0); MEAN PLATELET VOLUME 7.1 fl; PLATELET COUNT 148 Th/cmm (150-400); RED BLOOD COUNT 3.41 Mil/cmm (3.80-5.10); RED CELL DISTRIBUTION WIDTH 15.7 % (11.5-20.0)
[2018-08-27 09:23] LABS: % BASOPHILS 1.2 % (0.0-2.0); % EOSINOPHILS 3.3 % (0.0-5.0); % LYMPHOCYTES 26.5 % (20.0-50.0); % MONOCYTES 11.8 % (2.0-10.0)
--- NOTE | 2018-08-27 14:05 | Diagnostic Imaging Report ---
Ultrasound-guided paracentesis HISTORY: Ascites COMPARISON: CT abdomen and pelvis on 08/25/2018 FINDINGS: The procedure was performed by Dr. Sena. Informed consent was obtained and sterile techniques were utilized. Using ultrasound guidance, 5.4 liters of fluid was drained from the right lower quadrant. The patient tolerated the procedure with no immediate complications. IMPRESSION: Successful ultrasound guided paracentesis as above.
[2018-08-27 15:45] LABS: BF APPEARANCE CLEAR; BF COLOR YELLOW; BF RBC 35 /cumm; BF WBC 25 /cumm
[2018-08-27 15:47] LABS: BF MACROPHAGES MODERATE; BF MESOTELIAL CELLS RARE
[2018-08-27 15:56] LABS: BODY FLUID SITE ABDOMEN; BODY FLUID SOURCE PARACENTHESIS
[2018-08-27] MEDS: cefTRIAXone 1 GM in Sodium Chloride 0.9% 50 ML IV SCH (20:04)
[2018-08-27] MEDS: Azithromycin 500 MG in Sodium Chloride 0.9% 250 ML IV SCH (20:53)
[2018-08-28] MEDS: INSULIN LISPRO SLIDING SCALE 100 UNITS/ML UNIT SUBQ SCH ×2 (06:41→13:11)
--- NOTE | 2018-08-28 07:46 | General Progress Note ---
Subjective - Review of Systems Service Date: 08/28/18 Subjective: Patient is awake, alert, no acute distress. s/p paracentesis yesterday. 5L fluid removed. feeling better. less abd pain. Objective - Results Result Diagrams: 08/27/18 04:15 08/27/18 04:15 Recent Labs: Laboratory Last Values WBC 3.9 Th/cmm (4.8-10.8) L 08/27/18 04:15 RBC 3.41 Mil/cmm (3.80-5.10) L 08/27/18 04:15 Hgb 10.6 gm/dL (12-16) L 08/27/18 04:15 Hct 32.4 % (41.0-60) L 08/27/18 04:15 MCV 95.1 fl (81-100) 08/27/18 04:15 MCH 31.1 pg (27.0-31.0) H 08/27/18 04:15 MCHC Differential 32.7 pg (28.0-36.0) 08/27/18 04:15 RDW 15.7 % (11.5-20.0) 08/27/18 04:15 Plt Count 148 Th/cmm (150-400) L 08/27/18 04:15 MPV 7.1 fl 08/27/18 04:15 Neutrophils % 57.2 % (40.0-80.0) 08/27/18 04:15 Lymphocytes % 26.5 % (20.0-50.0) 08/27/18 04:15 Monocytes % 11.8 % (2.0-10.0) H 08/27/18 04:15 Eosinophils % 3.3 % (0.0-5.0) 08/27/18 04:15 Basophils % 1.2 % (0.0-2.0) 08/27/18 04:15 PT 10.3 SECONDS (9.5-11.5) 08/25/18 20:20 INR 0.99 (0.5-1.4) 08/25/18 20:20 PTT (Actin FS) 22.8 SECONDS (26.0-38.0) L 08/25/18 20:20 Sodium 137 mEq/L (136-145) 08/27/18 04:15 Potassium 4.1 mEq/L (3.5-5.1) 08/27/18 04:15 Chloride 105 mEq/L (98-107) 08/27/18 04:15 Carbon Dioxide 25.4 mEq/L (21.0-31.0) 08/27/18 04:15 Anion Gap 10.7 (7.0-16.0) 08/27/18 04:15 BUN 21 mg/dL (7-25) 08/27/18 04:15 Creatinine 1.1 mg/dL (0.6-1.2) 08/27/18 04:15 Est GFR ( Amer) > 60.0 ml/min (>90) 08/27/18 04:15 Est GFR (Non-Af Amer) 53.3 ml/min 08/27/18 04:15 BUN/Creatinine Ratio 19.1 08/27/18 04:15 Glucose 121 mg/dL (70-105) H 08/27/18 04:15 POC Glucose 125 MG/DL (70 - 105) H 08/28/18 06:34 Calcium 8.7 mg/dL (8.6-10.3) 08/27/18 04:15 Total Bilirubin 0.5 mg/dL (0.3-1.0) 08/27/18 04:15 AST 18 U/L (13-39) 08/27/18 04:15 ALT 12 U/L (7-52) 08/27/18 04:15 Alkaline Phosphatase 49 U/L (34-104) 08/27/18 04:15 Ammonia 53 umol/L (16-53) 08/27/18 04:15 Troponin I 0.01 ng/mL (0.01-0.05) 08/25/18 20:20 B-Natriuretic Peptide 95.6 pg/mL (5.0-100.0) 08/25/18 20:20 Total Protein 6.9 gm/dL (6.0-8.3) 08/27/18 04:15 Albumin 2.4 gm/dL (3.7-5.3) L 08/27/18 04:15 Globulin 4.5 gm/dL 08/27/18 04:15 Albumin/Globulin Ratio 0.5 (1.0-1.8) L 08/27/18 04:15 Amylase 64 U/L (29-103) 08/25/18 20:20 Lipase 27 U/L (11-82) 08/25/18 20:20 Urine Source CATH 08/25/18 20:55 Urine Color YELLOW 08/25/18 20:55 Urine Clarity HAZY (CLEAR) 08/25/18 20:55 Urine pH 5.5 (4.6 - 8.0) 08/25/18 20:55 Ur Specific [place] 1.025 (1.005-1.030) 08/25/18 20:55 Urine Protein TRACE mg/dL (NEGATIVE) 08/25/18 20:55 Urine Glucose (UA) NEGATIVE mg/dL (NEGATIVE) 08/25/18 20:55 Urine Ketones TRACE mg/dL (NEGATIVE) 08/25/18 20:55 Urine Blood MODERATE (NEGATIVE) H 08/25/18 20:55 Urine Nitrate NEGATIVE (NEGATIVE) 08/25/18 20:55 Urine Bilirubin NEGATIVE (NEGATIVE) 08/25/18 20:55 Urine Urobilinogen 1.0 E.U./dL (0.2 - 1.0) 08/25/18 20:55 Ur Leukocyte Esterase NEGATIVE (NEGATIVE) 08/25/18 20:55 Urine RBC 5-10 /hpf (0-5) H 08/25/18 20:55 Urine WBC 2-5 /hpf (0-5) 08/25/18 20:55 Ur Epithelial Cells MODERATE /lpf (FEW) 08/25/18 20:55 Urine Bacteria MANY /hpf (NONE SEEN) H 08/25/18 20:55 Body Fluid Site ABDOMEN 08/27/18 11:40 Fluid Source PARACENTHESIS 08/27/18 11:40 Fluid Color YELLOW 08/27/18 11:40 Fluid Appearance CLEAR 08/27/18 11:40 Fluid WBC 25 /cumm 08/27/18 11:40 Fluid RBC 35 /cumm 08/27/18 11:40 Fluid Neutrophils 27 % 08/27/18 11:40 Fluid Lymphocytes 51 % 08/27/18 11:40 Fluid Macrophages MODERATE 08/27/18 11:40 Fld Mesothelial Cells RARE 08/27/18 11:40 Body Fluid Clot NO 08/27/18 11:40 - Physical Exam Vitals and I&O: Vital Signs Temp 97.6 F 08/28/18 04:00 Pulse 75 08/28/18 04:00 Resp 19 08/28/18 04:00 BP 130/70 08/28/18 04:00 Pulse Ox 97 08/28/18 04:00 Intake & Output 08/27/18 08/28/18 08/28/18 18:59 06:59 18:59 Intake Total 375 Output Total 5400 Balance -5025 Weight (lbs) 79.787 kg 79.787 kg Intake: Oral 375 Output: Other 5400 Other: # Voids 3 2 # Bowel Movements 1 1 Stool Characteristics Soft Soft Brown Brown Weight Source Bedscale Bedscale Active Medications: Current Medications Acetaminophen (Tylenol) 650 mg PO Q6HR PRN PRN Reason: Pain or Fever >101 Stop: 10/25/18 06:03 Bisacodyl (Dulcolax 10 Mg Supp) 10 mg RC DAILY PRN PRN Reason: Constipation Stop: 10/25/18 06:03 Last Admin: 08/26/18 08:49 Dose: 10 mg Carvedilol (Coreg) 3.125 mg PO BID [facility] Stop: 10/25/18 08:59 Last Admin: 08/27/18 16:10 Dose: Not Given Docusate Sodium (Colace) 100 mg PO DAILY [facility] Stop: 10/25/18 08:59 Last Admin: 08/27/18 08:31 Dose: 100 mg Famotidine (Pepcid) 20 mg PO BID [facility] Stop: 10/25/18 08:59 Last Admin: 08/27/18 16:10 Dose: 20 mg Furosemide (Lasix) 40 mg PO DAILY [facility] Stop: 10/25/18 12:44 Last Admin: 08/27/18 08:31 Dose: 40 mg Glipizide (Glucotrol) 2.5 mg PO QDAC [facility] Stop: 10/25/18 07:29 Last Admin: 08/28/18 06:34 Dose: 2.5 mg Glucagon (Glucagen) 1 mg IM PRN PRN PRN Reason: BLOOD SUGAR < 70 Stop: 10/25/18 06:03 Ceftriaxone Sodium 1 gm/ (Sodium Chloride) 50 mls @ 100 mls/hr IV DAILY@2100 [facility] Stop: 10/25/18 20:59 Last Admin: 08/27/18 20:04 Dose: 100 mls/hr Azithromycin 500 mg/ Sodium (Chloride) 250 mls @ 250 mls/hr IV DAILY@2100 [facility] Stop: 10/25/18 20:59 Last Admin: 08/27/18 20:53 Dose: 250 mls/hr Insulin Human Lispro (Humalog Insulin Sliding Scale) 0 units SUBQ ACHS [facility]; Protocol Stop: 10/25/18 07:29 Last Admin: 08/28/18 06:41 Dose: Not Given Lactobacillus Rhamnosus (Culturelle 15b) 1 each PO DAILY [facility] Stop: 10/27/18 08:59 Lactulose (Cephulac) 20 gm PO BID [facility] Stop: 10/25/18 08:59 Last Admin: 08/27/18 16:10 Dose: 20 gm Magnesium Hydroxide (Milk Of Magnesia) 30 ml PO HS PRN PRN Reason: Constipation Stop: 10/25/18 06:03 Miscellaneous (Probiotic Screen) 1 ea MC PRN PRN PRN Reason: PROTOCOL Stop: 10/26/18 09:14 Multivitamins/Vitamin C (Theragran) 1 tab PO DAILY [facility] Stop: 10/25/18 08:59 Last Admin: 08/27/18 08:31 Dose: 1 tab Potassium Chloride (Klor-Con) 20 meq PO DAILY [facility] Stop: 10/25/18 08:59 Last Admin: 08/27/18 08:30 Dose: 20 meq Rifaximin (Xifaxan) 600 mg PO BID [facility] Stop: 10/25/18 16:59 Last Admin: 08/27/18 16:10 Dose: 600 mg Sitagliptin Phosphate (Januvia) 50 mg PO DAILY [facility] Stop: 10/25/18 08:59 Last Admin: 08/27/18 08:30 Dose: 50 mg Sodium Phosphate (Fleet Enema) 135 ml RC DAILY PRN PRN Reason: Constipation Stop: 10/25/18 06:03 Spironolactone (Aldactone) 100 mg PO DAILY [facility] Stop: 10/25/18 12:44 Last Admin: 08/27/18 08:29 Dose: 100 mg General: Alert HEENT: Atraumatic Neck: Supple Cardiovascular: Regular rate Abdomen: Bowel sounds, Soft, Hepatomegaly, Distended, no Tender, no Splenomegaly , no Rebound, no Mass, no Guarding - Procedures Procedures: Procedures Procedure Code Date DRAINAGE OF PERITONEAL CAVITY, PERCUTANEOUS APPROACH [id number] 06/29/18 Assessment/Plan - Assessment Assessment: Abdominal Pain RLL infiltrate Ascites Fecal Impaction Anasarca h/o SBP Liver Cirrhosis DM HTN GERD Hepatic Encephalopathy Pleural Effusion Lower abd Pain Leg Edema - Plan Plan: DC today back to SNF continue home meds.
--- NOTE | 2018-08-28 08:01 | GI Progress Note ---
Subjective - Review of Systems Service Date: 08/28/18 Subjective: More alert today, feeling better GI OBJECTIVE - Results Result Diagrams: 08/27/18 04:15 08/27/18 04:15 Recent Labs: Laboratory Last Values WBC 3.9 Th/cmm (4.8-10.8) L 08/27/18 04:15 RBC 3.41 Mil/cmm (3.80-5.10) L 08/27/18 04:15 Hgb 10.6 gm/dL (12-16) L 08/27/18 04:15 Hct 32.4 % (41.0-60) L 08/27/18 04:15 MCV 95.1 fl (81-100) 08/27/18 04:15 MCH 31.1 pg (27.0-31.0) H 08/27/18 04:15 MCHC Differential 32.7 pg (28.0-36.0) 08/27/18 04:15 RDW 15.7 % (11.5-20.0) 08/27/18 04:15 Plt Count 148 Th/cmm (150-400) L 08/27/18 04:15 MPV 7.1 fl 08/27/18 04:15 Neutrophils % 57.2 % (40.0-80.0) 08/27/18 04:15 Lymphocytes % 26.5 % (20.0-50.0) 08/27/18 04:15 Monocytes % 11.8 % (2.0-10.0) H 08/27/18 04:15 Eosinophils % 3.3 % (0.0-5.0) 08/27/18 04:15 Basophils % 1.2 % (0.0-2.0) 08/27/18 04:15 PT 10.3 SECONDS (9.5-11.5) 08/25/18 20:20 INR 0.99 (0.5-1.4) 08/25/18 20:20 PTT (Actin FS) 22.8 SECONDS (26.0-38.0) L 08/25/18 20:20 Sodium 137 mEq/L (136-145) 08/27/18 04:15 Potassium 4.1 mEq/L (3.5-5.1) 08/27/18 04:15 Chloride 105 mEq/L (98-107) 08/27/18 04:15 Carbon Dioxide 25.4 mEq/L (21.0-31.0) 08/27/18 04:15 Anion Gap 10.7 (7.0-16.0) 08/27/18 04:15 BUN 21 mg/dL (7-25) 08/27/18 04:15 Creatinine 1.1 mg/dL (0.6-1.2) 08/27/18 04:15 Est GFR ( Amer) > 60.0 ml/min (>90) 08/27/18 04:15 Est GFR (Non-Af Amer) 53.3 ml/min 08/27/18 04:15 BUN/Creatinine Ratio 19.1 08/27/18 04:15 Glucose 121 mg/dL (70-105) H 08/27/18 04:15 POC Glucose 125 MG/DL (70 - 105) H 08/28/18 06:34 Calcium 8.7 mg/dL (8.6-10.3) 08/27/18 04:15 Total Bilirubin 0.5 mg/dL (0.3-1.0) 08/27/18 04:15 AST 18 U/L (13-39) 08/27/18 04:15 ALT 12 U/L (7-52) 08/27/18 04:15 Alkaline Phosphatase 49 U/L (34-104) 08/27/18 04:15 Ammonia 53 umol/L (16-53) 08/27/18 04:15 Troponin I 0.01 ng/mL (0.01-0.05) 08/25/18 20:20 B-Natriuretic Peptide 95.6 pg/mL (5.0-100.0) 08/25/18 20:20 Total Protein 6.9 gm/dL (6.0-8.3) 08/27/18 04:15 Albumin 2.4 gm/dL (3.7-5.3) L 08/27/18 04:15 Globulin 4.5 gm/dL 08/27/18 04:15 Albumin/Globulin Ratio 0.5 (1.0-1.8) L 08/27/18 04:15 Amylase 64 U/L (29-103) 08/25/18 20:20 Lipase 27 U/L (11-82) 08/25/18 20:20 Urine Source CATH 08/25/18 20:55 Urine Color YELLOW 08/25/18 20:55 Urine Clarity HAZY (CLEAR) 08/25/18 20:55 Urine pH 5.5 (4.6 - 8.0) 08/25/18 20:55 Ur Specific Cubero 1.025 (1.005-1.030) 08/25/18 20:55 Urine Protein TRACE mg/dL (NEGATIVE) 08/25/18 20:55 Urine Glucose (UA) NEGATIVE mg/dL (NEGATIVE) 08/25/18 20:55 Urine Ketones TRACE mg/dL (NEGATIVE) 08/25/18 20:55 Urine Blood MODERATE (NEGATIVE) H 08/25/18 20:55 Urine Nitrate NEGATIVE (NEGATIVE) 08/25/18 20:55 Urine Bilirubin NEGATIVE (NEGATIVE) 08/25/18 20:55 Urine Urobilinogen 1.0 E.U./dL (0.2 - 1.0) 08/25/18 20:55 Ur Leukocyte Esterase NEGATIVE (NEGATIVE) 08/25/18 20:55 Urine RBC 5-10 /hpf (0-5) H 08/25/18 20:55 Urine WBC 2-5 /hpf (0-5) 08/25/18 20:55 Ur Epithelial Cells MODERATE /lpf (FEW) 08/25/18 20:55 Urine Bacteria MANY /hpf (NONE SEEN) H 08/25/18 20:55 Body Fluid Site ABDOMEN 08/27/18 11:40 Fluid Source PARACENTHESIS 08/27/18 11:40 Fluid Color YELLOW 08/27/18 11:40 Fluid Appearance CLEAR 08/27/18 11:40 Fluid WBC 25 /cumm 08/27/18 11:40 Fluid RBC 35 /cumm 08/27/18 11:40 Fluid Neutrophils 27 % 08/27/18 11:40 Fluid Lymphocytes 51 % 08/27/18 11:40 Fluid Macrophages MODERATE 08/27/18 11:40 Fld Mesothelial Cells RARE 08/27/18 11:40 Body Fluid Clot NO 08/27/18 11:40 - Physical Exam Vitals and I&O: Vital Signs Temp 97.6 F 08/28/18 04:00 Pulse 75 08/28/18 04:00 Resp 19 08/28/18 04:00 BP 130/70 08/28/18 04:00 Pulse Ox 97 08/28/18 04:00 Intake & Output 08/27/18 08/28/18 08/28/18 18:59 06:59 18:59 Intake Total 375 Output Total 5400 Balance -5025 Weight (lbs) 79.787 kg 79.787 kg Intake: Oral 375 Output: Other 5400 Other: # Voids 3 2 # Bowel Movements 1 1 Stool Characteristics Soft Soft Brown Brown Weight Source Bedscale Bedscale Active Medications: Current Medications Acetaminophen (Tylenol) 650 mg PO Q6HR PRN PRN Reason: Pain or Fever >101 Stop: 10/25/18 06:03 Bisacodyl (Dulcolax 10 Mg Supp) 10 mg RC DAILY PRN PRN Reason: Constipation Stop: 10/25/18 06:03 Last Admin: 08/26/18 08:49 Dose: 10 mg Carvedilol (Coreg) 3.125 mg PO BID [facility] Stop: 10/25/18 08:59 Last Admin: 08/27/18 16:10 Dose: Not Given Docusate Sodium (Colace) 100 mg PO DAILY [facility] Stop: 10/25/18 08:59 Last Admin: 08/27/18 08:31 Dose: 100 mg Famotidine (Pepcid) 20 mg PO BID [facility] Stop: 10/25/18 08:59 Last Admin: 08/27/18 16:10 Dose: 20 mg Furosemide (Lasix) 40 mg PO DAILY [facility] Stop: 10/25/18 12:44 Last Admin: 08/27/18 08:31 Dose: 40 mg Glipizide (Glucotrol) 2.5 mg PO QDAC [facility] Stop: 10/25/18 07:29 Last Admin: 08/28/18 06:34 Dose: 2.5 mg Glucagon (Glucagen) 1 mg IM PRN PRN PRN Reason: BLOOD SUGAR < 70 Stop: 10/25/18 06:03 Ceftriaxone Sodium 1 gm/ (Sodium Chloride) 50 mls @ 100 mls/hr IV DAILY@2100 [facility] Stop: 10/25/18 20:59 Last Admin: 08/27/18 20:04 Dose: 100 mls/hr Azithromycin 500 mg/ Sodium (Chloride) 250 mls @ 250 mls/hr IV DAILY@2100 [facility] Stop: 10/25/18 20:59 Last Admin: 08/27/18 20:53 Dose: 250 mls/hr Insulin Human Lispro (Humalog Insulin Sliding Scale) 0 units SUBQ ACHS [facility]; Protocol Stop: 10/25/18 07:29 Last Admin: 08/28/18 06:41 Dose: Not Given Lactobacillus Rhamnosus (Culturelle 15b) 1 each PO DAILY [facility] Stop: 10/27/18 08:59 Lactulose (Cephulac) 20 gm PO BID [facility] Stop: 10/25/18 08:59 Last Admin: 08/27/18 16:10 Dose: 20 gm Magnesium Hydroxide (Milk Of Magnesia) 30 ml PO HS PRN PRN Reason: Constipation Stop: 10/25/18 06:03 Miscellaneous (Probiotic Screen) 1 ea MC PRN PRN PRN Reason: PROTOCOL Stop: 10/26/18 09:14 Multivitamins/Vitamin C (Theragran) 1 tab PO DAILY [facility] Stop: 10/25/18 08:59 Last Admin: 08/27/18 08:31 Dose: 1 tab Potassium Chloride (Klor-Con) 20 meq PO DAILY [facility] Stop: 10/25/18 08:59 Last Admin: 08/27/18 08:30 Dose: 20 meq Rifaximin (Xifaxan) 600 mg PO BID [facility] Stop: 10/25/18 16:59 Last Admin: 08/27/18 16:10 Dose: 600 mg Sitagliptin Phosphate (Januvia) 50 mg PO DAILY [facility] Stop: 10/25/18 08:59 Last Admin: 08/27/18 08:30 Dose: 50 mg Sodium Phosphate (Fleet Enema) 135 ml RC DAILY PRN PRN Reason: Constipation Stop: 10/25/18 06:03 Spironolactone (Aldactone) 100 mg PO DAILY [facility] Stop: 10/25/18 12:44 Last Admin: 08/27/18 08:29 Dose: 100 mg General: Alert HEENT: Atraumatic Neck: Supple Cardiovascular: Regular rate Abdomen: Bowel sounds, Soft, Distended, no Tender, no Hepatomegaly, no Rebound, no Mass, no Guarding - Procedures Procedures: Procedures Procedure Code Date DRAINAGE OF PERITONEAL CAVITY, PERCUTANEOUS APPROACH [id number] 06/29/18 Assessment/Plan - Assessment Assessment: # Cirrhosis, possibly due to BUNDY. MELD 6 # Decompensated by ascites, hepatic encephalopathy # Constipation Paracentesis on 08/27 shows no SBP, 5.4 L removed. Plan: - aldactone 100mg daily and lasix 40mg daily po. Monitor Cr and electrolytes - lactulose and rifaximin for HE, much improved - diet as tolerated, low sodium - hepatology follow up - HCC screening up to date - avoid EtOH
[2018-08-28] MEDS: Lactulose 10 Gm/15 mL 30mL UDC PO SCH (08:44)
[2018-08-28] MEDS: Multivitamin Tab PO SCH (08:44)
[2018-08-28] MEDS: Potassium Chloride 20 mEq ER Tab PO SCH (08:46)
[2018-08-28] MEDS ORDERED: Lactobacillus Rhamnosus GG 15 Billion CFU CAP.SPRINK PO SCH (09:00)
--- NOTE | 2018-08-28 11:18 | Pathology Report ---
[id number] Collection Date: 08/27/2018 Surgeon: Dr. Dipika Sena Specimen Description: Paracentesis fluid for cytology. Gross Description: Received in multiple containers is approximately 5400 mL of yellow watery fluid. A banking representative portion is submitted for cytology processing. Microscopic Description: Examination of two cytospins and one cell block shows mostly inflammatory cells consisting of predominantly neutrophils and lymphocytes, admixed with scattered mesothelial cells and macrophages. Diagnosis: Mostly inflammatory cells, paracentesis fluid for cytology. Comment: There is no cytologic evidence for malignancy. [facility]# [id number]
--- NOTE | 2018-08-29 09:22 | Discharge Summary ---
DATE OF DISCHARGE: 08/28/2018 ATTENDING PHYSICIAN: Jacob Pappas D.O. PRELIMINARY DIAGNOSES: 1. Abdominal pain. 2. Right lower lobe infiltrate. 3. Ascites. 4. Fecal impaction. 5. Anasarca. 6. History of spontaneous bacterial peritonitis. 7. Liver cirrhosis. 8. Diabetes mellitus. 9. Hypertension. 10. Gastroesophageal reflux disease. 11. Hepatic encephalopathy. 12. Pleural effusion. 13. Lower abdominal pain. 14. Leg edema. DISCHARGE DIAGNOSES: 1. Abdominal pain. 2. Right lower lobe infiltrate. 3. Ascites. 4. Fecal impaction. 5. Anasarca. 6. History of spontaneous bacterial peritonitis. 7. Liver cirrhosis. 8. Diabetes mellitus. 9. Hypertension. 10. Gastroesophageal reflux disease. 11. Hepatic encephalopathy. 12. Pleural effusion. 13. Lower abdominal pain. 14. Leg edema. HISTORY OF PRESENT ILLNESS: This is a 63-year-old female who presents to [facility] ER for abdominal pain, noted by the nursing staff at the correction facility. The patient has a history of SBP along with liver cirrhosis and had been previously seen here at the hospital for ascites, which required ultrasound-guided paracentesis. The patient also has a history of diabetes mellitus, hypertension and gastroesophageal reflux disease, hepatic encephalopathy, pleural effusion, lower abdominal pain and leg pain. While in the ER, the patient had initial lab work, which revealed a white count of 5, hemoglobin 11, hematocrit 35.7, platelets 174,000. Sodium 133, potassium 4.7, BUN 21, creatinine 1.0. Glucose 191. AST was 24, ALT 14, alkaline phosphatase 58. Amylase 64, lipase 27. A CT of the abdomen done in the ER revealed a right lower lobe infiltrate along with a massive amount of ascites, anasarca and fecal impaction. The patient was subsequently admitted for further evaluation and treatment. HOSPITAL COURSE: The patient improved during her hospital stay, was seen and evaluated by GI, see dictated report. The patient underwent ultrasound-guided paracentesis, which removed 5 liters of ascitic fluid. The patient tolerated procedure well. The patient also was noted to have some fecal impaction. Repeat KUB revealed resolution of the constipation. The patient was then subsequently discharged back to the [facility] to continue her current orders. JOB# [id number]
[2018-08-29 14:09] LABS: AFP TUMOR MARKER 0.8 ng/mL (0.0-8.3); ANTITRYPSIN SERUM A1 159 mg/dL (90-200); CERULOPLASMIN 20.4 mg/dL (19.0-39.0); FERRITIN 1152 ng/mL (15-150); GAMMA GLUTAMYL TRANSFERASE 29 IU/L (0-60); HEP A AB IGM Negative (Negative); HEP B CORE IGM Negative (Negative); HEP B SURFACE AG QL Negative (Negative); HEP C ANTIBODY <0.1 s/co ratio (0.0-0.9); IRON LC 34 ug/dL (27-139); MITOCHONDRIAL AB <20.0 Units (0.0-20.0); TIBC (LC) 120 ug/dL (250-450); UIBC 86 ug/dL (118-369)
== END 2018-08-28 16:00 | DRG 279 ==
LOC: ER 19:45 → MSI 22:07
PROVIDERS: ADMIT Family Medicine; ATTEND Family Medicine
PROC: 0W9G3ZZ Drainage of Peritoneal Cavity, Percutaneous Approach (ICD-10-PCS; principal; 2018-08-27)
DX: K72.90 Hepatic failure, unspecified without coma (principal); E43 Unspecified severe protein-calorie malnutrition; J90 Pleural effusion, not elsewhere classified; J18.1 Lobar pneumonia, unspecified organism; R18.8 Other ascites; K74.60 Unspecified cirrhosis of liver; K75.81 Nonalcoholic steatohepatitis (NASH); K56.41 Fecal impaction; E11.9 Type 2 diabetes mellitus without complications; I10 Essential (primary) hypertension; K21.9 Gastro-esophageal reflux disease without esophagitis; R31.9 Hematuria, unspecified; Z79.4 Long term (current) use of insulin; Z68.31 Body mass index [BMI] 31.0-31.9, adult
CPT/HCPCS: 36415-UA; 71045-TC; 74000-TC; 76942-TC; 80053-TC; 80074-90; 81001-TC; 82103-90; 82105-90; 82140-TC; 82150-TC; 82390-90; 82728-90; 82948-90; 82977-90; 83036-90; 83540-90; 83550-90; 83690-TC; 83880-TC; 84157-TC; 84484-TC; 85025-TC; 85610-TC; 86255-90; 87086-90; 89051-TC; 93005; 94640; J0456; J0696; Z7610